=== PATIENT | male | born 1940 ===

== ENCOUNTER 2018-06-29 14:25 | Inpatient (IN) | payer OTHER ==
[~2018-06-29] VITALS: Ht 157.5 cm; Wt 63.5 kg
[2018-06-29] MEDS ORDERED: LOTREL 10-20 M1 EACH (14:46)
[2018-06-29] MEDS ORDERED: CATAPRES0.1 MG (14:46)
[2018-06-29] MEDS ORDERED: ZIAC 2.5-6.251 EACH (14:46)
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
--- NOTE | 2018-06-29 15:55 | NUR ---
SE EDUCA A PTE SOBRE TX MEDICO ZHAO REFIERE ENTENDER. SE ADMINISTRAN MEDICAMENTOS A PT ELOS CUALES TOLERA Y SE NOTIFICA ESTUIODE PLACA PENDIENTE A REALIZAR. PROCEDIMIENTOS REALIZADOS POR Tanya CANCHOLA.
[2018-07-06] MEDS ORDERED: PERCOCET 5-3251 EACH PO (14:57)
[2018-07-06] MEDS ORDERED: ELIQUIS2.5 MG PO (14:57)
[2018-07-06] MEDS ORDERED: DUI500 PO (14:57)
== END 2018-07-11 18:20 | DRG 470 ==
LOC: ER 14:25 → SEC-K 18:28 → SURH 18:28 → MEDJ 18:28 → SEC-K 06-30 08:16 → SURH 06-30 16:26
PROVIDERS: ADMIT Orthopaedic Surgery
PROC: BW24ZZZ Computerized Tomography (CT Scan) of Chest and Abdomen (ICD-10-PCS; 2018-06-30)
PROC: B246ZZZ Ultrasonography of Right and Left Heart (ICD-10-PCS; 2018-06-30)
PROC: 4A033R1 Measurement of Arterial Saturation, Peripheral, Percutaneous Approach (ICD-10-PCS; 2018-06-30)
PROC: 3E0F7GC Introduction of Other Therapeutic Substance into Respiratory Tract, Via Natural or Artificial Opening (ICD-10-PCS; 2018-07-01)
PROC: 0MTM0ZZ Resection of Left Hip Bursa and Ligament, Open Approach (ICD-10-PCS; 2018-07-04)
PROC: 0SRS0JZ Replacement of Left Hip Joint, Femoral Surface with Synthetic Substitute, Open Approach (ICD-10-PCS; principal; 2018-07-04 07:00)
DX: S72.032A Displaced midcervical fracture of left femur, initial encounter for closed fracture (principal); J98.11 Atelectasis; J44.1 Chronic obstructive pulmonary disease with (acute) exacerbation; D62 Acute posthemorrhagic anemia; R09.02 Hypoxemia; M16.12 Unilateral primary osteoarthritis, left hip; M70.72 Other bursitis of hip, left hip; W18.39XA Other fall on same level, initial encounter; I08.3 Combined rheumatic disorders of mitral, aortic and tricuspid valves; I10 Essential (primary) hypertension; N40.0 Benign prostatic hyperplasia without lower urinary tract symptoms; Z90.49 Acquired absence of other specified parts of digestive tract